=== PATIENT | female | born 1980 | race African-American/Black ===

== ENCOUNTER 2017-01-01 09:24 | Inpatient (IN) | payer OTHER ==
[2017-01-01] MEDS ORDERED: XYLOCAINE 2% INFILTRATI ONE ×3 (14:53→17:15)
[2017-01-01] MEDS ORDERED: MINERAL OIL PO PRN (14:53)
[2017-01-01] MEDS ORDERED: BRETHINE IVP PRN (14:53)
[2017-01-01] MEDS ORDERED: PHENERGAN PO PRN ×2 (14:53→17:47)
[2017-01-01] MEDS ORDERED: NARCAN 0.4 MG/1 ML IV PRN (14:53)
[2017-01-01] MEDS ORDERED: ePHEDrine SULFATE IV PRN (14:53)
[2017-01-01] MEDS ORDERED: SUBLIMAZE IV PRN (14:53)
[2017-01-01] MEDS ORDERED: BRETHINE SUB-Q PRN (14:53)
[2017-01-01] MEDS ORDERED: STADOL IV PRN (14:53)
[2017-01-01] MEDS ORDERED: PITOCin/NS 20 UNIT/1000ML DRIP 20 UNITS/1,000 ML BAG IV SCH (15:00)
[2017-01-01] MEDS ORDERED: PITOCin/NS 30 UNIT/500ML 30 UNITS/500 ML BAG IV SCH ×2 (15:00)
[2017-01-01] MEDS ORDERED: LACTATED RINGERS 1,000 ML IV SCH (15:00)
--- NOTE | 2017-01-01 15:15 | History and Physical Report ---
History of Present Illness Date of examination: 01/01/17 Date of admission: 01/01/17 10:21 Chief complaint: bleeding and active labor History of present illness: This is 36 yo at 39+5 weeks here for active labor, vaginal bleeding. Patient has been seen in clinic since 9 weeks. OB problem list : anemia on iron sless than dates 35% Past History Past Medical History: no pertinent history Past Surgical History: no surgical history Family/Genetic History: none Social history: , lives with family. denies: smoking, alcohol abuse, prescription drug abuse - Obstetrical History Expected Date of Delivery: 01/02/17 Actual Gestation: 39 Week(s) 6 Day(s) : 1 Para: 0 Number of Pregnancies: 0 Spontaneous Abortions: 0 Induced : 0 Number of Living Children: 0 Medications and Allergies Allergies Allergy/AdvReac Type Severity Reaction Status Date / Time No Known Allergies Allergy Unverified 01/01/17 10:45 Home Medications Medication Instructions Recorded Confirmed Last Taken Type Ferrous Sulfate [Feosol 325 MG tab] 325 mg PO DAILY 01/01/17 01/01/17 01/01/17 01:00 History Tablet 1 tab PO DAILY 01/01/17 01/01/17 01/01/17 01:00 History Active Meds: Active Medications Butorphanol Tartrate (Stadol) 2 mg IV Q2H PRN PRN Reason: Pain , Severe (7-10) Fentanyl (Sublimaze) 100 mcg IV Q2H PRN PRN Reason: Labor Pain Lactated Ringer's (Lactated Ringers) 1,000 mls @ 125 mls/hr IV DIRECT JACKIE Oxytocin/Sodium Chloride (Pitocin/Ns 20 Unit/1000ml Drip) 20 units in 1,000 mls @ 125 mls/hr IV DIRECT JACKIE Oxytocin/Sodium Chloride (Pitocin/Ns 30 Unit/500ml) 30 units in 500 mls @ 1 mls /hr IV TITR JACKIE; 1 MILLIUNITS/MIN PRN Reason: Protocol Oxytocin/Sodium Chloride (Pitocin/Ns 30 Unit/500ml) 30 units in 500 mls @ 0 mls /hr IV TITR JACKIE; As Directed PRN Reason: Protocol Mineral Oil (Mineral Oil) 30 ml PO QHS PRN PRN Reason: Constipation Naloxone HCl (Narcan 0.4 Mg/1 Ml) 0.1 mg IV Q2MIN PRN PRN Reason: Res Rate </= 8 or 02 SAT < 92% Promethazine HCl (Phenergan) 25 mg PO Q6H PRN PRN Reason: Nausea And Vomiting Review of Systems Genitourinary: vaginal bleeding - Vital Signs Vital signs: Vital Signs Pulse BP 65 114/65 01/01/17 10:55 01/01/17 10:55 Temp Pulse Resp BP Pulse Ox 97.4 F L 55 L 18 114/65 79 L 01/01/17 11:00 01/01/17 12:35 01/01/17 11:00 01/01/17 11:00 01/01/17 12:35 - Physical Exam Breasts: Positive: normal Cardiovascular: Regular rate, Normal S1 Lungs: Positive: Clear to auscultation, Normal air movement Abdomen: Positive: normal appearance, soft, normal bowel sounds. Negative: distention, tenderness Genitourinary (Female): Positive: normal external genitalia, normal perenium Vagina: Positive: normal moisture Uterus: Positive: normal size, normal contour Extremities: Positive: normal Deep Tendon Reflex Grade: Normal +2 - Obstetrical FHR: category 1 Uterine Contraction Monitor Mode: External Cervical Dilatation: 4 Cervical Effacement Percentage: 50 station: 0 Uterine Contraction Pattern: Regular Uterine Tone Measurement Phase: Contraction Uterine Contraction Intensity: Moderate Results All other labs normal. Assessment and Plan A/P Active labor IUP 39+6 weeks, Vtx GBS neg- no abx required offer epidural rechecked 7/c/0 light meconium _ peds to delviery expect vaginal delivery
[2017-01-01 15:28] LABS: Hematocrit 38.8 % (30.3-42.9); Mean Corpuscular HGB Conc 34 % (30-34); Mean Corpuscular Hemoglobin 29 pg (28-32); Mean Corpuscular Volume 87 fl (79-97); Platelet Count 135 K/mm3 (140-440); Red Blood Count 4.46 M/mm3 (3.65-5.03); Red Cell Distribution Width 13.3 % (13.2-15.2); White Blood Count 10.5 K/mm3 (4.5-11.0)
[2017-01-01] MEDS ORDERED: PERCOCET 5/325 PO PRN (17:47)
[2017-01-01] MEDS ORDERED: TYLENOL PO PRN (17:47)
[2017-01-01] MEDS ORDERED: NORCO 5/325 PO PRN (17:47)
[2017-01-01] MEDS ORDERED: PHENERGAN PR PRN (17:47)
[2017-01-01] MEDS ORDERED: TUCKS PAD TP PRN (17:47)
[2017-01-01] MEDS ORDERED: TORADOL IV PRN (17:47)
[2017-01-01] MEDS ORDERED: BENADRYL PO PRN (17:47)
[2017-01-01] MEDS ORDERED: LANSINOH TP PRN (17:47)
[2017-01-01] MEDS ORDERED: DULCOLAX PR PRN (17:47)
[2017-01-01] MEDS ORDERED: MILK OF MAGNESIA PO PRN (17:47)
[2017-01-01] MEDS ORDERED: ZOFRAN IV PRN (17:47)
[2017-01-01] MEDS ORDERED: SODIUM CHLORIDE FLUSH SYRINGE 10 ML IV NR (18:00)
--- NOTE | 2017-01-01 20:06 | Procedure Note ---
OB Delivery Note - Delivery Date of Delivery: 01/01/17 Surgeon: AURA NEAL Estimated blood loss: 500cc - Vaginal Delivery position: OA Intrapartum events: none Delivery induction: none Delivery augmentation: rupture of membranes, pitocin Delivery monitor: external FHT, external uterine Route of delivery: Delivery placenta: spontaneous Delivery cord: nuchal cord (X1) Episiotomy: none Delivery laceration: 3rd degree Delivery repair: vicryl Anesthesia: local Delivery comments: 36_ y/o now P 1 experienced over 3rd degree laceration on 01/01/17 @ 1708 The infant's head was delivered in a controlled manner. The OP and nares were then bulb suctioned on the perineum. Amniotic fluid was meconium stained. One nuchal cord was noted and was clamped and reduced. The infant's body was then delivered in the usual manner without difficulty. The cord was clamped and cut. The infant was handed to the Peds staff which were in attendance. The placenta delivered intact with 3VC followed by 30 units of Pitocin IV and uterine massage for hemostasis. EBL= 500cc. The 3rd degree was repaired in the usual manner. It was repaired with 0-vicryl and 3-0 Vicryl. . Rectal exam was performed prior to repair and there was no defect felt through mucosa. Rectal exam was then again performed after repair and good rectal tone was noted , and no sutures noted The cervix and vagina were inspected for lacs and none were noted. The , viable female Apgars 8 and 9 and weight 3263= 7 pounds and 3.1 oz. g was in stable condition. Good hemostasis noted. - A at 1 minute: 8 at 5 minutes: 9 Gender: Female
[2017-01-01] MEDS: COLACE PO SCH (22:03)
[2017-01-01] MEDS: MOTRIN PO SCH (22:03)
[2017-01-01] MEDS: SENOKOT S PO SCH (22:04)
[2017-01-02] MEDS: MOTRIN PO SCH ×4 (05:16→23:58)
[2017-01-02 05:44] LABS: Hematocrit 30.4 % (30.3-42.9); Hemoglobin 10.4 gm/dl (10.1-14.3)
[2017-01-02] MEDS ORDERED: M-M-R II VACCINE SUB-Q ONE (06:00)
[2017-01-02] MEDS ORDERED: BOOSTRIX IM ONE (06:00)
[2017-01-02] MEDS ORDERED: AMMONIA INHALANT IH ONE (07:21)
[2017-01-02] MEDS: COLACE PO SCH ×2 (09:22→22:32)
[2017-01-02] MEDS: PRENATAL VITAMIN PO SCH (09:22)
[2017-01-02] MEDS: SENOKOT S PO SCH ×2 (09:22→22:32)
--- NOTE | 2017-01-02 15:06 | Progress Note ---
Assessment and Plan O: VSS AF PP H/H: 10.4/30.4 A: Stable PP Day 1 Anemia P: Iron QD D/c home Subjective - Subjective Date of service: 01/02/17 Patient reports: appetite normal, voiding normally, pain well controlled, ambulating normally [place]: doing well, nursing well Objective - Vital Signs Latest vital signs: Vital Signs Temp Pulse Resp BP Pulse Ox 01/02/17 12:55 98.1 F 74 18 117/80 01/02/17 12:00 18 01/02/17 08:50 97.6 F 76 17 89/60 01/02/17 00:00 98.8 F 71 18 94/52 01/01/17 20:08 99.1 F 58 L 20 131/78 01/01/17 19:14 66 117/58 01/01/17 19:00 63 18 114/62 01/01/17 18:58 63 114/62 01/01/17 18:45 67 18 118/74 01/01/17 18:43 67 118/74 01/01/17 18:30 67 18 120/80 01/01/17 18:28 67 120/80 01/01/17 18:15 69 18 120/74 01/01/17 18:13 69 120/74 01/01/17 18:00 68 18 118/66 01/01/17 17:58 68 118/66 01/01/17 17:45 64 18 121/68 01/01/17 17:44 64 121/68 01/01/17 17:03 97 H 85 01/01/17 17:02 69 92 01/01/17 16:58 85 95 01/01/17 16:57 84 82 L 01/01/17 16:53 72 99 01/01/17 16:48 63 99 01/01/17 16:43 68 98 01/01/17 16:38 67 99 01/01/17 16:33 58 L 100 01/01/17 16:28 64 100 01/01/17 16:23 69 99 01/01/17 16:18 67 100 01/01/17 16:14 97.8 F 70 18 132/65 100 01/01/17 16:13 61 100 01/01/17 16:08 57 L 100 01/01/17 16:03 62 97 01/01/17 15:58 75 96 01/01/17 15:53 63 97 01/01/17 15:48 60 97 01/01/17 15:45 55 L 132/65 01/01/17 15:43 49 L 171/73 99 01/01/17 15:23 18 Intake and Output 01/02/17 01/02/17 01/02/17 06:59 14:59 22:59 Intake Total 240 Output Total 601 300 Balance -601 -60 Intake: Oral 240 Output: Urine 300 Void 300 Urine/Stool Mix 600 Pad Count 1 Other: Total, Intake Amount 120 Total, Output Amount 600 300 # Voids Void 1 # Bowel Movements 1 - Exam Breasts: Present: normal, Lungs: Present: Normal air movement Abdomen: Present: normal appearance, soft. Absent: distention, tenderness Uterus: Present: normal, firm, fundal height below umbilicus. Absent: bogginess , tenderness Extremities: Present: normal. Absent: edema - Labs Labs: Abnormal lab results 01/01/17 Range/Units 11:05 Plt Count 135 L (140-440) K/mm3
--- NOTE | 2017-01-02 15:11 | Discharge Summary ---
Providers - Providers Date of Admission: 01/01/17 10:21 Date of discharge: 01/02/17 Attending physician: KIERSTEN LIVINGSTON Primary care physician: KIERSTEN LIVINGSTON Hospitalization Reason for admission: active labor, IUP at term Delivery: Laceration: 3rd degree Other procedures: none complications: none Discharge diagnosis: IUP at term delivered [place] baby: female Condition at discharge: Good Disposition: DC-01 TO HOME OR SELFCARE Plan - Discharge Medications Prescriptions: Acetaminophen with Codeine [Acetaminophen-Codeine #4 TAB] 1 tab PO Q6HR PRN #30 tab PRN Reason: sever pain Docusate Sodium [Colace] 100 mg PO BID #60 capsule Ferrous Sulfate [Feosol 325 MG tab] 325 mg PO DAILY #60 tablet Ibuprofen [Motrin 600 MG tab] 600 mg PO Q6H PRN #30 tablet PRN Reason: Pain Vit-Fe Fumar-FA [ Vitamin] 1 each PO QDAY #60 tablet - Provider Discharge Summary Activity: routine, no sex for 6 weeks, no heavy lifting 4 weeks, no strenuous exercise Instructions: routine Additional instructions: [] Smoking cessation referral if applicable(refer to patient education folder for contact #) [] Refer to [facility]'s [facility] Booklet Call your doctor immediately for: * Fever > 100.5 * Heavy vaginal bleeding ( >1 pad per hour) * Severe persistent headache * Shortness of breath * Reddened, hot, painful area to leg or breast * Drainage or odor from incision. * Keep incision clean and dry at all times and follow doctor's instructions regarding bathing/showering - Follow up plan Follow up: KIERSTEN LIVINGSTON MD [Primary Care Provider] - JACKIE LEYVA MD [Staff Physician] - (RTO 4 weeks)
[2017-01-03] MEDS: MOTRIN PO SCH ×2 (05:35→13:34)
[2017-01-03] MEDS: COLACE PO SCH (10:15)
[2017-01-03] MEDS: PRENATAL VITAMIN PO SCH (10:16)
[2017-01-03 13:43] VITALS: BP 98/62
== END 2017-01-03 14:00 | disposition home or self-care (01) | DRG 775 ==
LOC: TRG 09:24 → LD 10:21 → OB 19:46 → UNDODISIN 01-02 17:40
PROVIDERS: ADMIT Obstetrics & Gynecology; ATTEND Obstetrics & Gynecology
PROC: 0DQR0ZZ Repair Anal Sphincter, Open Approach (ICD-10-PCS; principal; 2017-01-01)
PROC: 10E0XZZ Delivery of Products of Conception, External Approach (ICD-10-PCS; 2017-01-01)
PROC: 3E0234Z Introduction of Serum, Toxoid and Vaccine into Muscle, Percutaneous Approach (ICD-10-PCS; 2017-01-02)
DX: O69.81X0 Labor and delivery complicated by cord around neck, without compression, not applicable or unspecified (principal); O70.20 Third degree perineal laceration during delivery, unspecified; Z3A.39 39 weeks gestation of pregnancy; Z37.0 Single live birth; O99.02 Anemia complicating childbirth; D50.9 Iron deficiency anemia, unspecified; O77.0 Labor and delivery complicated by meconium in amniotic fluid; O76 Abnormality in fetal heart rate and rhythm complicating labor and delivery; Z23 Encounter for immunization
CPT/HCPCS: 36415; 85014; 85018; 85027; 86850; 86900; 86901; 88307; 90471; 90715; A6250; J2590; J3010; J7120

== ENCOUNTER 2019-03-22 23:15 | Inpatient (IN) | payer OTHER ==
[2019-03-22] MEDS ORDERED: PITOCin/NS 20 UNIT/1000ML DRIP 20 UNITS/1,000 ML BAG IV SCH (23:45)
[2019-03-22] MEDS ORDERED: MINERAL OIL PO PRN (23:53)
[2019-03-22] MEDS ORDERED: BRETHINE SUB-Q PRN (23:53)
[2019-03-22] MEDS ORDERED: SUBLIMAZE IV PRN (23:53)
[2019-03-22] MEDS ORDERED: STADOL IV PRN (23:53)
[2019-03-22] MEDS ORDERED: BRETHINE IVP PRN (23:53)
[2019-03-22] MEDS ORDERED: AMPICILLIN/NS 2 GM/100 ML 2 GM/100 ML BAG IV ONE (23:53)
[2019-03-22] MEDS ORDERED: XYLOCAINE 2% INFILTRATI ONE (23:53)
[2019-03-23] MEDS ORDERED: LACTATED RINGERS 1,000 ML ONE (00:06)
[2019-03-23] MEDS: LACTATED RINGERS 1,000 ML IV SCH ×2 (00:10→01:46)
[2019-03-23 00:34] LABS: Hematocrit 36.2 % (30.3-42.9); Hemoglobin 12.4 gm/dl (10.1-14.3); Mean Corpuscular HGB Conc 34 % (30-34); Mean Corpuscular Volume 82 fl (79-97); Platelet Count 172 K/mm3 (140-440); Red Blood Count 4.42 M/mm3 (3.65-5.03); Red Cell Distribution Width 15.3 % (13.2-15.2)
--- NOTE | 2019-03-23 02:41 | History and Physical Report ---
History of Present Illness Date of examination: 03/23/19 Date of admission: 03/22/19 23:31 Chief complaint: contractions History of present illness: 38y/o @ 39+3 weeks presents with regular uterine contractions and advanced cervical dilation. The patient denies leakage of fluid. records are not available for review. Past History Past Medical History: no pertinent history Past Surgical History: no surgical history Social history: - Obstetrical History Expected Date of Delivery: 03/27/19 Actual Gestation: 39 Week(s) 3 Day(s) : 2 Para: 1 Hx # Term Pregnancies: 1 Number of Pregnancies: 0 Spontaneous Abortions: 0 Induced : 0 Number of Living Children: 1 Medications and Allergies Allergies Allergy/AdvReac Type Severity Reaction Status Date / Time No Known Allergies Allergy Unverified 01/01/17 10:45 Home Medications Medication Instructions Recorded Confirmed Last Taken Type Vit-Fe Fumar-FA [ 1 each PO QDAY #60 tablet 01/02/17 03/23/19 Unknown Rx Vitamin] Active Meds: Active Medications Butorphanol Tartrate (Stadol) 2 mg IV Q2H PRN PRN Reason: Pain , Severe (7-10) Ephedrine Sulfate (Ephedrine Sulfate) 10 mg IV Q2M PRN PRN Reason: Hypotension Fentanyl (Sublimaze) 100 mcg IV Q2H PRN PRN Reason: Labor Pain Last Admin: 03/23/19 01:30 Dose: 100 mcg Documented by: Oxytocin/Sodium Chloride (Pitocin/Ns 20 Unit/1000ml Drip) 20 units in 1,000 mls @ 125 mls/hr IV DIRECT JACKIE Lactated Ringer's (Lactated Ringers) 1,000 mls @ 125 mls/hr IV DIRECT JACKIE Last Admin: 03/23/19 01:46 Dose: 125 mls/hr Documented by: Mineral Oil (Mineral Oil) 30 ml PO QHS PRN PRN Reason: Constipation Terbutaline Sulfate (Brethine) 0.25 mg SUB-Q ONCE PRN PRN Reason: Hyperstimulation/Hypertonicity Terbutaline Sulfate (Brethine) 0.25 mg IVP ONCE PRN PRN Reason: Hyperstimulation/Hypertonicity Review of Systems All systems: negative Genitourinary: contractions, no leakage of fluid - Vital Signs Vital signs: Vital Signs Temp 98.0 F 03/23/19 00:01 Temp Pulse Resp BP Pulse Ox 98.0 F 88 119/60 03/23/19 00:01 03/23/19 01:39 03/23/19 01:39 - Physical Exam Breasts: Positive: deferred Cardiovascular: Regular rate Lungs: Positive: Clear to auscultation Abdomen: Positive: normal appearance Results Result Diagrams: 03/22/19 00:05 Abnormal lab results 03/22/19 Range/Units 00:05 RDW 15.3 H (13.2-15.2) % All other labs normal. Assessment and Plan - Patient Problems (1) Active labor at term Current Visit: Yes Status: Acute Plan to address problem: admit to L&D
[2019-03-23] MEDS ORDERED: PHENERGAN PO PRN (03:07)
[2019-03-23] MEDS ORDERED: PHENERGAN PR PRN (03:07)
[2019-03-23] MEDS ORDERED: TYLENOL PO PRN (03:07)
[2019-03-23] MEDS ORDERED: TUCKS PAD TP PRN (03:07)
[2019-03-23] MEDS ORDERED: NORCO 5/325 PO PRN (03:07)
[2019-03-23] MEDS ORDERED: MILK OF MAGNESIA PO PRN (03:07)
[2019-03-23] MEDS ORDERED: DULCOLAX PR PRN (03:07)
[2019-03-23] MEDS ORDERED: LANSINOH TP PRN (03:07)
[2019-03-23] MEDS ORDERED: ZOFRAN IV PRN (03:07)
[2019-03-23] MEDS ORDERED: BENADRYL PO PRN (03:07)
--- NOTE | 2019-03-23 03:07 | Procedure Note ---
OB Delivery Note - Delivery Date of Delivery: 03/23/19 Surgeon: KIERSTEN LIVINGSTON Estimated blood loss: 100cc - Vaginal Delivery presentation: vertex Intrapartum events: none Delivery induction: AROM Delivery monitor: external FHT, external uterine Route of delivery: Delivery placenta: spontaneous Delivery cord: 3 umbilical vessels Episiotomy: none Delivery laceration: 1st degree Anesthesia: none Delivery comments: The patient progressed to complete complete +2 and pushed to deliver a liveborn female with Apgars of 8 and 9 weight 7 lbs. 3 oz. After delivery of the head, the shoulders delivered without difficulty. The was bulb suctioned. The cord was clamped and cut 2 and the was placed on the warmer. The placenta delivered spontaneously intact with a three-vessel cord. The patient sustained a first-degree midline laceration left unrepaired. Estimated blood loss of 100 mL - Infant A at 1 minute: 8 at 5 minutes: 9 Gender: Female (weight 7lbs 3oz)
[2019-03-23] MEDS ORDERED: SODIUM CHLORIDE FLUSH SYRINGE 10 ML IV NR (04:00)
[2019-03-23] MEDS: IBUPROFEN PO SCH ×2 (05:29→11:42)
[2019-03-23 15:34] LABS: Hematocrit 33.4 % (30.3-42.9)
--- NOTE | 2019-03-24 08:31 | Progress Note ---
Assessment and Plan A/P PPD1 s/p routine care discharge home tomorrow Subjective - Subjective Date of service: 03/24/19 Principal diagnosis: Patient reports: appetite normal, voiding normally, pain well controlled, flatus, ambulating normally [place]: doing well Objective - Vital Signs Latest vital signs: Vital Signs Temp Pulse Resp BP Pulse Ox 03/24/19 00:18 98.2 F 78 20 106/62 97 03/23/19 17:05 98.1 F 73 14 97/54 97 03/23/19 13:17 97.8 F 60 14 89/54 96 03/23/19 08:38 97.9 F 75 14 91/45 97 Intake and Output 03/23/19 03/24/19 03/24/19 23:59 07:59 15:59 Intake Total 1840 240 Balance 1840 240 Intake: Oral 1840 240 Other: Total, Intake Amount 240 240 Voiding Method Toilet # Voids 1 Void 1 1 - Exam Breasts: Present: normal Cardiovascular: Present: Regular rate, Normal S1 Lungs: Present: Clear to auscultation, Normal air movement Abdomen: Present: normal appearance, soft, normal bowel sounds. Absent: distention, tenderness, guarding Vulva: both: normal Uterus: Present: normal, firm, fundal height below umbilicus. Absent: bogginess, tenderness Extremities: Present: normal Deep Tendon Reflex Grade: Normal +2
--- NOTE | 2019-03-24 08:32 | Discharge Summary ---
Providers - Providers Date of Admission: 03/22/19 23:31 Date of discharge: 03/24/19 Attending physician: KIERSTEN LIVINGSTON Primary care physician: KIERSTEN LIVINGSTON Hospitalization Reason for admission: active labor Delivery: Episiotomy: none Laceration: none Incision: normal, dry, intact Other procedures: none complications: none Discharge diagnosis: IUP at term delivered baby: female Hospital course: patietn sustained . Routine care. f/u in 4 weeks Condition at discharge: Good Disposition: DC-01 TO HOME OR SELFCARE Plan - Provider Discharge Summary Activity: routine, no sex for 6 weeks, no strenuous exercise Diet: routine Additional instructions: [] Smoking cessation referral if applicable(refer to patient education folder for contact #) [] Refer to [facility]'s [facility] Booklet Call your doctor immediately for: * Fever > 100.5 * Heavy vaginal bleeding ( >1 pad per hour) * Severe persistent headache * Shortness of breath * Reddened, hot, painful area to leg or breast * Drainage or odor from incision. * Keep incision clean and dry at all times and follow doctor's instructions regarding bathing/showering - Follow up plan Follow up: KIERSTEN LIVINGSTON MD [Primary Care Provider] - 04/20/19
[2019-03-24] MEDS: IBUPROFEN PO SCH (11:41)
[2019-03-25] MEDS: IBUPROFEN PO SCH (07:12)
[2019-03-25 10:04] VITALS: BP 104/60
== END 2019-03-25 08:10 | disposition home or self-care (01) | DRG 807 ==
LOC: TRG 23:15 → OBSVTOIN 23:31 → TRG 23:31 → LD 23:31 → OB 03-23 04:50
PROVIDERS: ADMIT Obstetrics & Gynecology; ATTEND Obstetrics & Gynecology
PROC: 10E0XZZ Delivery of Products of Conception, External Approach (ICD-10-PCS; principal; 2019-03-23)
PROC: 10907ZC Drainage of Amniotic Fluid, Therapeutic from Products of Conception, Via Natural or Artificial Opening (ICD-10-PCS; 2019-03-23)
PROC: 0HQ9XZZ Repair Perineum Skin, External Approach (ICD-10-PCS; 2019-03-23)
DX: O70.0 First degree perineal laceration during delivery (principal); Z37.0 Single live birth; Z3A.39 39 weeks gestation of pregnancy
CPT/HCPCS: 36415; 85014; 85018; 85027; 86850; 86900; 86901; G0378; A6250; J0290; J2590; J3010; J7120